=== PATIENT | male | born 1940 | race Caucasian/White ===

== ENCOUNTER 2019-04-22 17:29 | Emergency (ER) | payer MEDICARE ==
--- NOTE | 2019-04-22 17:37 | ED ---
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 En route, the patient was administered 50mg Benadryl and 0.3mg Epinephrine around 1710 which have helped to relieve his symptoms. He denies dysphagia at this time. He is not currently in pain. Pt states he feels tired and cold. no cp, sob, abd pain. No n/v/d. No itching. Reports vision completely at baseline. He states that he recently was stung by a paper wasp a few weeks ago, but today it looked like a yung bee. He takes baby ASA for afib every day. Patients medications reviewed this visit. - History of Current Complaint Hx Obtained From: Patient, EMS Onset/Duration: Sudden Onset, Started minutes ago, Still Present Timing: Lasting Minutes Severity Initially: Severe Severity Currently: Mild Pain Scale Used: 0-10 Numeric Location: Diffuse Character: Swelling - of tongue, Pruritus Aggravating Factor(s): Nothing Alleviating Factor(s): Antihistamines - Benadryl 50mg, Epinephrine - 0.3mg Associated Signs And Symptoms: Positive: Difficulty Breathing, Other: - POSITIVE : tongue swelling, blurred vision; NEGATIVE: dysphagia - Allergies/Home Medications Allergies/Adverse Reactions: Allergies Allergy/AdvReac Type Severity Reaction Status Date / Time bee venom protein (honey bee) Allergy Severe Swelling Verified 04/22/19 19:00 Of Face,Lips,& Throat MS Cephalexin [Cephalexin] Allergy Intermediate Hives Verified 05/23/16 15:29 MS Chondroitin Sulfate A Allergy Intermediate GI Upset Verified 05/23/16 15:29 [From Glucosamine Plus Chondroitin] MS Glucosamine Allergy Intermediate GI Upset Verified 05/23/16 15:29 [From Glucosamine Plus Chondroitin] MS Penicillins [PCN] Allergy Intermediate Hives Verified 05/23/16 15:29 MS Iodixanol [From Visipaque] Allergy Mild Hives Verified 02/13/17 11:30 Home Medications: Home Medications Dabigatran CAP(NF) [Pradaxa CAP(NF)] 150 mg PO BID 04/22/19 [History Confirmed 04/22/19] Metoprolol Succinate XL TAB* [Toprol XL TAB*] 25 mg PO DAILY 04/22/19 [History Confirmed 04/22/19] Miconazole Nitrate [Anti-Fungal Powder] 71 gm TOPICAL DAILY 04/22/19 [History Confirmed 04/22/19] traZODone TAB* [Desyrel TAB*] 75 mg PO BEDTIME 04/22/19 [History Confirmed 04/22] PMH/Surg Hx/FS Hx/Imm Hx Previously Healthy: Yes Endocrine/Hematology History: Reports: Hx Anticoagulant Therapy Denies: Hx Diabetes Cardiovascular History: Reports: Hx Angina, Hx Angioplasty, Hx Coronary Artery Disease, Hx Hypercholesterolemia, Hx Hypertension, Hx Myocardial Infarction Denies: Hx Congestive Heart Failure, Hx Valvular Heart Disease Respiratory History: Denies: Hx Asthma, Hx Chronic Obstructive Pulmonary Disease (COPD) GI History: Reports: Hx Hiatal Hernia, Other GI Disorders - HIATAL HERNIA, uses tums almost daily History: Reports: Hx Kidney Stones, Other Problems/Disorders - RENAL CALVULI WITH STENTS, uti Denies: Hx Renal Disease Musculoskeletal History: Reports: Hx Arthritis, Hx Back Problems, Hx Gout, Hx Orthopedic Injury - lumbar fx Sensory History: Reports: Hx Contacts or Glasses Opthamlomology History: Reports: Hx Contacts or Glasses - Surgical History Surgical History: Yes Surgery Procedure, Year, and Place: 2007 CARDIAC STENT, [facility]. 1999 KIDNEY STONE [facility]. KIDNEY STONE [facility], URETERAL STENT [facility] 01/14/14. bladder growth removed 2013 Hx Anesthesia Reactions: No - Immunization History Date of Tetanus Vaccine: Unk Date of Influenza Vaccine: Fall 2011 Infectious Disease History: Reports: Hx Shingles - 09/2014 - Family History Known Family History: Positive: Cardiac Disease, Non-Contributory - Social History Occupation: Retired Lives: With Family Alcohol Use: None Hx Substance Use: No Substance Use Type: Reports: None Hx Tobacco Use: Yes Smoking Status (MU): Former Smoker Have You Smoked in the Last Year: No Review of Systems Constitutional: Negative Positive: Blurred Vision - resolved Positive: Other - POSITIVE: tongue swelling (resolved); NEGATIVE: dysphagia Positive: Shortness Of Breath Positive: Other - bee sting with diffuse pruritus All Other Systems Reviewed And Are Negative: Yes Physical Exam - Summary Physical Exam Summary: Vital Signs Reviewed: Yes A+Ox3, no distress, speaking full, easy sentences Eyes: Conjunctiva Clear, AMBER. EOM intact and full ENT: Hearing grossly normal TM x 2 clear, mmoist, uvula midline, no exudate, no erythema Neck: Positive: Supple Respiratory: Positive: No respiratory distress, No accessory muscle use + CTA throughout no w/r, no stridor Cardiovascular: RRR nl s1, s2 no m/r CBT <2 sec abd soft + BS nt/nd no guarding, no distension Musculoskeletal Exam: DAVIS x 4 without difficulty Strength Intact, ROM Intact Neurological: Positive: Alert, + sensation throughout Psychological: Positive: Normal Response To flat surfacer Skin: Positive: no rash, no ecchymosis Triage Information Reviewed: Yes Vital Signs Reviewed: Yes Re-Evaluation - Re-Evaluation First Eval Re-Evaluation Time: 18:07 Comment: He is feeling well, but he is drowsy from the Benadryl. We'll give patient's of continue to monitor. Vital signs are stable. Second Eval Re-Evaluation Time: 18:50 - patient continues to feel well with no complaints. Patient will be discharged close to 8:00 after 3 hour observation from his appendectomy. Patient be signed out to Dr. Wick. Patient and family aware and understanding of plan. Allergic Reaction Course/Dx - Course Course Of Treatment: Pt presents to ED after rapid development of hives, sob and tongue swelling following a bee sting. Pt received Benadryl 50 mg and epinephrine by EMS at approximately 1710. Patient states he had rapid improvement. Some arrival urgent care patient states he feels tired little cold and shaky but no longer feels short of breath or like his tongue is swollen. Patient speaking easy. Uses. Patient in no distress with stable vital signs. We'll continue to closely watch monitor. We'll give patient Pepcid as well as Solu-Medrol. Anticipate a three-hour observation if there is no changes. Patient's family at bedside agreement with plan. We'll continue to watch. - Diagnoses Provider Diagnoses: Allergic reaction Discharge - Sign-Out/Discharge Documenting (check all that apply): Sign-Out Patient Signing out patient TO: Jameel Sloan - Patient is a sign-out to Dr. Jameel Sloan MD, at change of shift at 1900 on 04/22/2019, pending observation and disposition. Patient Received Moderate/Deep Sedation with Procedure: No - Discharge Plan Condition: Stable Disposition: HOME Prescriptions: EPINEPHrine [Epipen 2-Boy] 0.3 mg IJ ONCE #1 auto.injct Famotidine TAB* [Pepcid 20 MG TAB*] 20 mg PO DAILY #12 tab predniSONE TAB* [Deltasone 20 MG TAB*] 40 mg PO DAILY #8 tab Patient Education Materials: Insect Bite or Sting (ED), Anaphylaxis (ED) Referrals: Bk Alejandro MD [Primary Care Provider] - Additional Instructions: - Take prednisone exactly as prescribed until gone - starting tomorrow - Okay to take Benadryl (1-2 tablets) every 6 hours as needed. This medication may cause drowsiness - do NOT drive, operate machinery or drink alcohol while taking Benadryl -Take pepcid as prescribed - 2 times daily for 6 days starting tomorrow -Avoid getting over heated (hot showers, hot tubs, exercise) for at least 48 hours -Try to avoid aspirin, NSAIDs (Motrin, Aleve, Naprosyn) for 2-3 days -Okay to apply cool compresses to the area of injury - fill the prescription for the epi pen - keep with you and use if you have a similar reaction - if you use your epi pen you must contact 911 and come to the emergency department for evaluation -Contact your doctor or return here with questions or concerns - Billing Disposition and Condition Condition: STABLE Disposition: Home - Attestation Statements Document Initiated by Shonda: Yes Documenting Scribe: Sharee Stinson Provider For Whom Shonda is Documenting (Include Credential): Dr. Venessa Burdick MD Scribe Attestation: Sharee Longoria scribed for Dr. Venessa Burdick MD on 04/23/19 at 0717. Scribe Documentation Reviewed: Yes Provider Attestation: The documentation as recorded by the Sharee osborne accurately reflects the service I personally performed and the decisions made by me, Dr. Venessa Burdick MD Status of Scribafua Document: Viewed
[2019-04-22] MEDS ORDERED: Famotidine IV* 10 MG/ML 2 ML (20 mg) IV SLOW PU ONE (17:52)
[2019-04-22] MEDS ORDERED: methylPREDNISolone 125 MG* 2 ML VIAL IV ONE (17:52)
--- NOTE | 2019-04-22 19:12 | ED ---
Progress - Progress Note Progress Note: This pt is a signout from Dr. Burdick to Dr. Sloan at 0704/22/19 shift change pending allergic reaction observation. Pt was discharged. Re-Evaluation - Re-Evaluation First Eval Re-Evaluation Time: 18:07 Comment: He is feeling alright, but he is drowsy from the Benadryl. Course/Dx - Course Course Of Treatment: This pt is a signout from Dr. Burdick to Dr. Sloan [place] 69904/22/19 shift change pending allergic reaction observation. Pt was discharged. - Diagnoses Provider Diagnoses: Allergic reaction Discharge - Sign-Out/Discharge Documenting (check all that apply): Receiving Sign-Out Receiving patient FROM: Venessa Burdick - This pt is a signout from Dr. Burdick to Dr. Sloan [place] 69904/22/19 shift change pending allergic reaction observation. Patient Received Moderate/Deep Sedation with Procedure: No - Discharge Plan Condition: Stable Disposition: HOME Prescriptions: EPINEPHrine [Epipen 2-Boy] 0.3 mg IJ ONCE #1 auto.injct Famotidine TAB* [Pepcid 20 MG TAB*] 20 mg PO DAILY #12 tab predniSONE TAB* [Deltasone 20 MG TAB*] 40 mg PO DAILY #8 tab Patient Education Materials: Insect Bite or Sting (ED), Anaphylaxis (ED) Referrals: Bk Alejandro MD [Primary Care Provider] - Additional Instructions: - Take prednisone exactly as prescribed until gone - starting tomorrow - Okay to take Benadryl (1-2 tablets) every 6 hours as needed. This medication may cause drowsiness - do NOT drive, operate machinery or drink alcohol while taking Benadryl -Take pepcid as prescribed - 2 times daily for 6 days starting tomorrow -Avoid getting over heated (hot showers, hot tubs, exercise) for at least 48 hours -Try to avoid aspirin, NSAIDs (Motrin, Aleve, Naprosyn) for 2-3 days -Okay to apply cool compresses to the area of injury - fill the prescription for the epi pen - keep with you and use if you have a similar reaction - if you use your epi pen you must contact 911 and come to the emergency department for evaluation -Contact your doctor or return here with questions or concerns - Billing Disposition and Condition Condition: STABLE Disposition: Home - Attestation Statements Document Initiated by Shonda: Yes Documenting Scribe: Khoi Hickey Provider For Whom Shonda is Documenting (Include Credential): Dr. Jameel Sloan MD Scribe Attestation: I, Khoi Hickey, scribed for Dr. Jameel Sloan MD on 04/23/19 at 0416. Scribe Documentation Reviewed: Yes Provider Attestation: The documentation as recorded by the Khoi osborne accurately reflects the service I personally performed and the decisions made by me, Dr. Jameel Sloan MD Status of Scribe Document: Viewed
[2019-04-22 20:18] VITALS: BP 139/72
== END 2019-04-22 20:40 | disposition home or self-care (01) ==
LOC: ED 17:29
DX: T78.40XA Allergy, unspecified, initial encounter (principal); X58.XXXA Exposure to other specified factors, initial encounter; Y92.9 Unspecified place or not applicable; I48.91 Unspecified atrial fibrillation; I25.119 Atherosclerotic heart disease of native coronary artery with unspecified angina pectoris; Z79.82 Long term (current) use of aspirin; Z79.899 Other long term (current) drug therapy; Z88.0 Allergy status to penicillin; Z88.2 Allergy status to sulfonamides; Z88.8 Allergy status to other drugs, medicaments and biological substances; Z88.1 Allergy status to other antibiotic agents; Z91.041 Radiographic dye allergy status; E78.00 Pure hypercholesterolemia, unspecified; I10 Essential (primary) hypertension; I25.2 Old myocardial infarction; Z87.891 Personal history of nicotine dependence
CPT/HCPCS: 96374; 96375; 99282; J2930

== ENCOUNTER 2020-11-02 13:04 | Inpatient (IN) ==
[2020-11-02 14:06] LABS: ABS Lymphocytes 0.3 10^3/ul (1.0-4.8); ABS Monocytes 0.1 10^3/ul (0-0.8); ABS Neutrophils 1.4 10^3/ul (1.5-7.7); Hematocrit 35 % (42-52); Hemoglobin 11.5 g/dL (14.0-18.0); Lymphocyte % 18.5 %; Mean Corpuscular HGB Conc 33 g/dL (31-36); Mean Corpuscular Hemoglobin 29 pg (27-31); Mean Corpuscular Volume 89 fL (80-94); Mean Platelet Volume 8.1 fL (7.4-10.4); Platelet Count 121 10^3/uL (150-450); Red Blood Count 3.91 10^6 /uL (4.18-5.48); Red Cell Distribution Width 14 % (10-15); White Blood Count 1.9 10^3/uL (3.5-10.8)
[2020-11-02 14:16] LABS: Activated Partial Thrombo Time 45.4 seconds (26.0-38.0)
[2020-11-02 14:24] LABS: Influenza A Molecular Negative (Negative); Influenza B Molecular Negative (Negative)
[2020-11-02 14:25] LABS: ALT 24 U/L (7-52); AST 38 U/L (13-39); Albumin 3.8 g/dL (3.2-5.2); Albumin/Globulin Ratio 1.4 (1-3); Alkaline Phosphatase 40 U/L (34-104); Anion Gap 8 mmol/L (2-11); BUN/Creatinine Ratio 17.8 (8-20); Blood Urea Nitrogen 39 mg/dL (6-24); C Reactive Protein 91.13 mg/L (<8.01); CO2 Carbon Dioxide 24 mmol/L (22-32); Chloride 101 mmol/L (101-111); Creatine Kinase 357 U/L (10-223); EGFR African American 35.2 (>60); EGFR Non-African American 29.1 (>60); Globulin 2.8 g/dL (2-4); Glucose 121 mg/dL (70-100); Potassium 4.7 mmol/L (3.5-5.0); Sodium 133 mmol/L (135-145); Total Protein 6.6 g/dL (6.4-8.9)
[2020-11-02 14:28] LABS: Troponin I 0.08 ng/mL (<0.03)
[2020-11-02] MEDS ORDERED: NS 0.9% IV ONE (14:30)
[2020-11-02] MEDS ORDERED: Cefepime 2 GM in Dextrose 2 GM/50 ML BAG IV ONE (15:38)
[2020-11-02] MEDS ORDERED: Dexamethasone IV 4 MG/ML VIAL 1 ml VIAL IV SLOW PU ONE (15:42)
[2020-11-02] MEDS ORDERED: Remdesivir 100 mg Vial 200 MG in NS 0.9% 250 ml 210 ML IV ONE (18:00)
[2020-11-02 19:03] LABS: LDH 361 U/L (140-271)
[2020-11-02 22:05] LABS: Ferritin 744.3 ng/mL (24-336)
[2020-11-02 22:34] LABS: Troponin I 0.08 ng/mL (<0.03)
[2020-11-02] MEDS: Azithromycin 500 mg/250 ml NS 500 MG/250 ML BAG IVPB SCH (23:27)
[2020-11-02 23:56] LABS: Urine Appearance Cloudy; Urine Bilirubin Negative (Negative); Urine Blood Negative (Negative); Urine Color Yellow; Urine Glucose Negative (Negative); Urine Ketones Negative (Negative); Urine Nitrite Negative (Negative); Urine Protein 2+(100 mg/dL) (Negative); Urine Specific Gravity 1.019 (1.010-1.030); Urine Urobilinogen Negative (Negative)
[2020-11-03 00:05] LABS: Urine Creatinine Concentration 165.49 mg/dL
[2020-11-03 00:15] LABS: Urine Bacteria Absent (Absent); Urine Red Blood Cell Absent (Absent); Urine Squamous Epithelial Cell Present (Absent); Urine White Blood Cell Absent (Absent)
[2020-11-03 01:43] LABS: Troponin I 0.07 ng/mL (<0.03)
[2020-11-03 05:20] LABS: ABS Lymphocytes 0.3 10^3/ul (1.0-4.8); ABS Monocytes 0.1 10^3/ul (0-0.8); Eosinophil % 0.1 %; Hematocrit 33 % (42-52); Hemoglobin 10.7 g/dL (14.0-18.0); Lymphocyte % 24.2 %; Mean Corpuscular HGB Conc 33 g/dL (31-36); Mean Corpuscular Hemoglobin 29 pg (27-31); Mean Corpuscular Volume 89 fL (80-94); Mean Platelet Volume 8.2 fL (7.4-10.4); Nucleated Red Blood Cells % 0.2; Platelet Count 113 10^3/uL (150-450); Red Blood Count 3.67 10^6 /uL (4.18-5.48); Red Cell Distribution Width 14 % (10-15); White Blood Count 1.3 10^3/uL (3.5-10.8)
[2020-11-03 05:36] LABS: BUN/Creatinine Ratio 21.5 (8-20); Calcium 7.6 mg/dL (8.6-10.3); EGFR Non-African American 37.2 (>60)
[2020-11-03] MEDS ORDERED: cefTRIAXone 1 gm/50 mL NS BAG 1 GM/50 ML BAG IVPB SCH (08:00)
[2020-11-03] MEDS ORDERED: Tocilizumab 200 MG/10 ML 10 ml VIAL IVPB ONE (09:12)
[2020-11-03 09:19] LABS: C Reactive Protein 97.72 mg/L (<8.01)
[2020-11-03] MEDS: Aspirin EC 81 mg TAB.EC (enteric coated) PO SCH (09:57)
[2020-11-03] MEDS ORDERED: Tocilizumab 800 MG in NS 0.9% 100 ml BAG 60 ML IVPB ONE (11:00)
[2020-11-03] MEDS: Cefepime 2 GM in Dextrose 2 GM/50 ML BAG IV SCH ×2 (11:25→23:21)
[2020-11-03] MEDS: Azithromycin 500 mg/250 ml NS 500 MG/250 ML BAG IVPB SCH (20:37)
[2020-11-03] MEDS: Remdesivir 100 mg Vial 100 MG in NS 0.9% 250 ml 230 ML IV SCH (22:05)
[2020-11-04 07:02] LABS: ABS Lymphocytes 0.4 10^3/ul (1.0-4.8); ABS Monocytes 0.1 10^3/ul (0-0.8); ABS Neutrophils 1.9 10^3/ul (1.5-7.7); Hematocrit 32 % (42-52); Hemoglobin 10.9 g/dL (14.0-18.0); Lymphocyte % 14.8 %; Mean Corpuscular HGB Conc 34 g/dL (31-36); Mean Corpuscular Hemoglobin 30 pg (27-31); Mean Corpuscular Volume 88 fL (80-94); Mean Platelet Volume 8.3 fL (7.4-10.4); Nucleated Red Blood Cells % 0.1; Platelet Count 148 10^3/uL (150-450); Red Blood Count 3.68 10^6 /uL (4.18-5.48); Red Cell Distribution Width 15 % (10-15); White Blood Count 2.4 10^3/uL (3.5-10.8)
[2020-11-04 07:21] LABS: BUN/Creatinine Ratio 26.6 (8-20); Calcium 8.1 mg/dL (8.6-10.3); EGFR African American 57.6 (>60); EGFR Non-African American 47.6 (>60)
[2020-11-04 07:25] LABS: Potassium 5.1 mmol/L (3.5-5.0)
[2020-11-04] MEDS: Aspirin EC 81 mg TAB.EC (enteric coated) PO SCH (09:14)
[2020-11-04] MEDS: Cefepime 2 GM in Dextrose 2 GM/50 ML BAG IV SCH ×2 (09:15→22:28)
[2020-11-04] MEDS: Azithromycin 500 mg/250 ml NS 500 MG/250 ML BAG IVPB SCH (22:29)
[2020-11-04] MEDS: Remdesivir 100 mg Vial 100 MG in NS 0.9% 250 ml 230 ML IV SCH (22:35)
[2020-11-05 06:17] LABS: ABS Lymphocytes 0.3 10^3/ul (1.0-4.8); ABS Monocytes 0.2 10^3/ul (0-0.8); ABS Neutrophils 3.7 10^3/ul (1.5-7.7); Hematocrit 33 % (42-52); Lymphocyte % 6.3 %; Mean Corpuscular HGB Conc 33 g/dL (31-36); Mean Corpuscular Hemoglobin 30 pg (27-31); Mean Corpuscular Volume 89 fL (80-94); Mean Platelet Volume 8.2 fL (7.4-10.4); Nucleated Red Blood Cells % 0.1; Platelet Count 178 10^3/uL (150-450); Red Cell Distribution Width 15 % (10-15); White Blood Count 4.1 10^3/uL (3.5-10.8)
[2020-11-05 06:38] LABS: Calcium 8.2 mg/dL (8.6-10.3); EGFR African American 54.5 (>60); Potassium 4.9 mmol/L (3.5-5.0)
[2020-11-05 08:38] LABS: Ferritin 824.7 ng/mL (24-336)
[2020-11-05 09:35] LABS: Creatine Kinase 259 U/L (10-223)
[2020-11-05] MEDS: cefTRIAXone 1 gm/50 mL NS BAG 1 GM/50 ML BAG IVPB SCH (09:37)
[2020-11-05] MEDS: Aspirin EC 81 mg TAB.EC (enteric coated) PO SCH (09:57)
[2020-11-05] MEDS: Albuterol HFA INHALER 8 gm MDI INH SCH ×4 (12:23→23:17)
[2020-11-05] MEDS: Remdesivir 100 mg Vial 100 MG in NS 0.9% 250 ml 230 ML IV SCH (22:21)
[2020-11-06] MEDS: Albuterol HFA INHALER 8 gm MDI INH SCH ×4 (03:42→19:30)
[2020-11-06 03:47] LABS: ABS Lymphocytes 0.3 10^3/ul (1.0-4.8); ABS Monocytes 0.2 10^3/ul (0-0.8); ABS Neutrophils 5.3 10^3/ul (1.5-7.7); Hematocrit 33 % (42-52); Hemoglobin 10.9 g/dL (14.0-18.0); Lymphocyte % 5.1 %; Mean Corpuscular HGB Conc 33 g/dL (31-36); Mean Corpuscular Hemoglobin 29 pg (27-31); Mean Corpuscular Volume 89 fL (80-94); Mean Platelet Volume 8.5 fL (7.4-10.4); Nucleated Red Blood Cells % 0.1; Platelet Count 206 10^3/uL (150-450); Red Blood Count 3.71 10^6 /uL (4.18-5.48); Red Cell Distribution Width 15 % (10-15); White Blood Count 5.8 10^3/uL (3.5-10.8)
[2020-11-06 04:01] LABS: BUN/Creatinine Ratio 28.5 (8-20); Calcium 8.3 mg/dL (8.6-10.3); EGFR African American 60.5 (>60); Potassium 4.9 mmol/L (3.5-5.0)
[2020-11-06] MEDS: Aspirin EC 81 mg TAB.EC (enteric coated) PO SCH (08:30)
[2020-11-06 08:39] LABS: Magnesium 2.2 mg/dL (1.9-2.7)
[2020-11-06] MEDS: cefTRIAXone 1 gm/50 mL NS BAG 1 GM/50 ML BAG IVPB SCH (10:21)
[2020-11-06] MEDS: Remdesivir 100 mg Vial 100 MG in NS 0.9% 250 ml 230 ML IV SCH (23:06)
[2020-11-07 05:16] LABS: Hematocrit 34 % (42-52); Hemoglobin 11.4 g/dL (14.0-18.0); Mean Corpuscular HGB Conc 34 g/dL (31-36); Mean Corpuscular Hemoglobin 30 pg (27-31); Mean Corpuscular Volume 88 fL (80-94); Mean Platelet Volume 8.1 fL (7.4-10.4); Platelet Count 228 10^3/uL (150-450); Red Blood Count 3.84 10^6 /uL (4.18-5.48); Red Cell Distribution Width 15 % (10-15)
[2020-11-07 05:36] LABS: ABS Lymphocytes 0.3 10^3/ul (1.0-4.8); ABS Monocytes 0.2 10^3/ul (0-0.8); ABS Neutrophils 6.5 10^3/ul (1.5-7.7); Lymphocyte % 4.4 %; Nucleated Red Blood Cells % 0.1
[2020-11-07] MEDS: Aspirin EC 81 mg TAB.EC (enteric coated) PO SCH (11:24)
[2020-11-07] MEDS: cefTRIAXone 1 gm/50 mL NS BAG 1 GM/50 ML BAG IVPB SCH (11:44)
[2020-11-07 13:20] LABS: BUN/Creatinine Ratio 31.3 (8-20); C Reactive Protein 10.34 mg/L (<8.01); Calcium 8.5 mg/dL (8.6-10.3); EGFR African American 65.4 (>60); EGFR Non-African American 54.1 (>60); Magnesium 2.1 mg/dL (1.9-2.7); Phosphorus 2.9 mg/dL (2.5-5.0); Potassium 4.7 mmol/L (3.5-5.0)
[2020-11-08 05:49] LABS: ABS Lymphocytes 0.3 10^3/ul (1.0-4.8); ABS Monocytes 0.2 10^3/ul (0-0.8); ABS Neutrophils 8.3 10^3/ul (1.5-7.7); Eosinophil % 0.1 %; Hematocrit 36 % (42-52); Hemoglobin 12.4 g/dL (14.0-18.0); Lymphocyte % 3.8 %; Mean Corpuscular HGB Conc 34 g/dL (31-36); Mean Corpuscular Hemoglobin 30 pg (27-31); Mean Corpuscular Volume 87 fL (80-94); Mean Platelet Volume 7.7 fL (7.4-10.4); Platelet Count 265 10^3/uL (150-450); Red Blood Count 4.16 10^6 /uL (4.18-5.48); Red Cell Distribution Width 15 % (10-15); White Blood Count 8.8 10^3/uL (3.5-10.8)
[2020-11-08 06:05] LABS: BUN/Creatinine Ratio 30.1 (8-20); Calcium 8.4 mg/dL (8.6-10.3); EGFR African American 62.6 (>60); EGFR Non-African American 51.7 (>60); Phosphorus 3.6 mg/dL (2.5-5.0); Potassium 4.6 mmol/L (3.5-5.0)
[2020-11-08] MEDS: Aspirin EC 81 mg TAB.EC (enteric coated) PO SCH (09:11)
[2020-11-08] MEDS: cefTRIAXone 1 gm/50 mL NS BAG 1 GM/50 ML BAG IVPB SCH (10:07)
[2020-11-08] MEDS ORDERED: Furosemide 40 mg/4 ml IV VIAL IV SLOW PU ONE (10:56)
[2020-11-08 14:41] LABS: Troponin I 0.41 ng/mL (<0.03)
[2020-11-08 20:40] LABS: Troponin I 0.34 ng/mL (<0.03)
[2020-11-09 02:44] LABS: Troponin I 0.34 ng/mL (<0.03)
[2020-11-09 05:06] LABS: ABS Lymphocytes 0.4 10^3/ul (1.0-4.8); ABS Monocytes 0.2 10^3/ul (0-0.8); ABS Neutrophils 6.7 10^3/ul (1.5-7.7); Eosinophil % 0.7 %; Hematocrit 36 % (42-52); Hemoglobin 12.1 g/dL (14.0-18.0); Lymphocyte % 5.7 %; Mean Corpuscular HGB Conc 34 g/dL (31-36); Mean Corpuscular Hemoglobin 29 pg (27-31); Mean Corpuscular Volume 88 fL (80-94); Mean Platelet Volume 7.8 fL (7.4-10.4); Nucleated Red Blood Cells % 0.1; Platelet Count 252 10^3/uL (150-450); Red Blood Count 4.13 10^6 /uL (4.18-5.48); Red Cell Distribution Width 15 % (10-15); White Blood Count 7.4 10^3/uL (3.5-10.8)
[2020-11-09 05:17] LABS: BUN/Creatinine Ratio 30.2 (8-20); Calcium 8.6 mg/dL (8.6-10.3); EGFR African American 50.9 (>60); EGFR Non-African American 42.1 (>60); Magnesium 2.1 mg/dL (1.9-2.7); Potassium 4.4 mmol/L (3.5-5.0)
[2020-11-09] MEDS: Aspirin EC 81 mg TAB.EC (enteric coated) PO SCH (07:39)
[2020-11-09] MEDS ORDERED: Lorazepam PYXIS KEY PRN (08:00)
[2020-11-09] MEDS ORDERED: LORazepam 2 mg VIAL 1 ml IV PUSH PRN (08:00)
[2020-11-09] MEDS: cefTRIAXone 1 gm/50 mL NS BAG 1 GM/50 ML BAG IVPB SCH (10:30)
[2020-11-10 05:42] LABS: ABS Eosinophils 0.1 10^3/ul (0-0.6); ABS Lymphocytes 0.4 10^3/ul (1.0-4.8); ABS Monocytes 0.2 10^3/ul (0-0.8); ABS Neutrophils 6.2 10^3/ul (1.5-7.7); Eosinophil % 1.5 %; Hematocrit 37 % (42-52); Hemoglobin 12.3 g/dL (14.0-18.0); Lymphocyte % 5.6 %; Mean Corpuscular HGB Conc 33 g/dL (31-36); Mean Corpuscular Hemoglobin 30 pg (27-31); Mean Corpuscular Volume 89 fL (80-94); Nucleated Red Blood Cells % 0.1; Platelet Count 228 10^3/uL (150-450); Red Blood Count 4.17 10^6 /uL (4.18-5.48); Red Cell Distribution Width 15 % (10-15); White Blood Count 6.9 10^3/uL (3.5-10.8)
[2020-11-10 05:54] LABS: BUN/Creatinine Ratio 34.2 (8-20); Calcium 8.5 mg/dL (8.6-10.3); EGFR African American 53.7 (>60); EGFR Non-African American 44.3 (>60); Magnesium 2.2 mg/dL (1.9-2.7); Potassium 4.3 mmol/L (3.5-5.0)
[2020-11-10] MEDS: Aspirin EC 81 mg TAB.EC (enteric coated) PO SCH (08:01)
[2020-11-10] MEDS: cefTRIAXone 1 gm/50 mL NS BAG 1 GM/50 ML BAG IVPB SCH (09:59)
[2020-11-10 12:13] LABS: Troponin I 1.17 ng/mL (<0.03)
[2020-11-10] MEDS ORDERED: Nitroglycerin 0.1 mg/hr PATCH (2.5 mg) TRANSDERM SCH (13:00)
[2020-11-10] MEDS ORDERED: Nitroglycerin 0.1 mg/hr PATCH (2.5 mg) TRANSDERM PRN (13:48)
[2020-11-10 18:14] LABS: Troponin I 1.76 ng/mL (<0.03)
[2020-11-10] MEDS: Nitro Patch/OINT Remove PATCH PATCH OFF SCH (20:58)
[2020-11-11 03:38] LABS: ABS Eosinophils 0.1 10^3/ul (0-0.6); ABS Lymphocytes 0.4 10^3/ul (1.0-4.8); ABS Monocytes 0.2 10^3/ul (0-0.8); ABS Neutrophils 6.7 10^3/ul (1.5-7.7); Eosinophil % 1.9 %; Hematocrit 38 % (42-52); Lymphocyte % 5.2 %; Mean Corpuscular HGB Conc 34 g/dL (31-36); Mean Corpuscular Hemoglobin 30 pg (27-31); Mean Corpuscular Volume 88 fL (80-94); Mean Platelet Volume 7.5 fL (7.4-10.4); Platelet Count 240 10^3/uL (150-450); Red Blood Count 4.37 10^6 /uL (4.18-5.48); Red Cell Distribution Width 15 % (10-15); White Blood Count 7.5 10^3/uL (3.5-10.8)
[2020-11-11 03:58] LABS: BUN/Creatinine Ratio 31.5 (8-20); Calcium 8.5 mg/dL (8.6-10.3); EGFR African American 56.2 (>60); EGFR Non-African American 46.5 (>60); Magnesium 2.1 mg/dL (1.9-2.7); Potassium 4.4 mmol/L (3.5-5.0)
[2020-11-11] MEDS: Aspirin EC 81 mg TAB.EC (enteric coated) PO SCH (09:01)
[2020-11-11] MEDS: Nitro Patch/OINT Remove PATCH PATCH OFF SCH (20:23)
[2020-11-12] MEDS ORDERED: Dextran 70/Hypromellose Tears Eye Drops 15 ml BTL (for Artificials Tears) BOTH EYES PRN (03:48)
[2020-11-12] MEDS: Aspirin EC 81 mg TAB.EC (enteric coated) PO SCH (09:16)
[2020-11-12] MEDS: Saline NASAL SPRAY 0.65% BTL BOTH NARES PRN (11:42)
[2020-11-12] MEDS: Nitro Patch/OINT Remove PATCH PATCH OFF SCH (22:00)
[2020-11-13 01:15] LABS: Troponin I 0.77 ng/mL (<0.03)
[2020-11-13] MEDS ORDERED: Morphine 2 MG/ML SYRINGE IV ONE (01:36)
[2020-11-13] MEDS: Aspirin EC 81 mg TAB.EC (enteric coated) PO SCH (09:08)
[2020-11-13] MEDS: Albuterol HFA INHALER 8 gm MDI INH PRN (15:12)
[2020-11-13] MEDS: Acetylcysteine INH SOL (RT) 200 MG/ML 4 ML VIAL INH SCH ×2 (15:12→19:39)
[2020-11-13 17:18] LABS: Anion Gap 9 mmol/L (2-11); BUN/Creatinine Ratio 28.2 (8-20); Blood Urea Nitrogen 44 mg/dL (6-24); CO2 Carbon Dioxide 22 mmol/L (22-32); Calcium 8.7 mg/dL (8.6-10.3); Chloride 110 mmol/L (101-111); EGFR African American 52.1 (>60); Glucose 121 mg/dL (70-100); Potassium 4.4 mmol/L (3.5-5.0); Sodium 141 mmol/L (135-145)
[2020-11-13] MEDS: Nitro Patch/OINT Remove PATCH PATCH OFF SCH (21:40)
[2020-11-14] MEDS: Acetylcysteine INH SOL (RT) 200 MG/ML 4 ML VIAL INH SCH ×4 (01:02→20:06)
[2020-11-14] MEDS: Albuterol HFA INHALER 8 gm MDI INH PRN (07:53)
[2020-11-14] MEDS: Aspirin EC 81 mg TAB.EC (enteric coated) PO SCH (09:09)
[2020-11-14] MEDS: Miconazole TOPICAL CREAM 2% 30 GM TOPICAL SCH ×2 (09:55→20:23)
[2020-11-14] MEDS ORDERED: Albuterol 2.5mg/3 ml (0.083%) NEB.SOLN INH ONE (19:50)
[2020-11-14] MEDS: Nitro Patch/OINT Remove PATCH PATCH OFF SCH (20:23)
[2020-11-15] MEDS: Acetylcysteine INH SOL (RT) 200 MG/ML 4 ML VIAL INH SCH (01:12)
[2020-11-15] MEDS: Albuterol 2.5mg/3 ml (0.083%) NEB.SOLN INH SCH ×2 (01:12→07:24)
[2020-11-15] MEDS ORDERED: Acetylcysteine INH SOL (RT) 200 MG/ML 4 ML VIAL INH SCH (07:00)
[2020-11-15] MEDS: Aspirin EC 81 mg TAB.EC (enteric coated) PO SCH (08:03)
[2020-11-15] MEDS: Miconazole TOPICAL CREAM 2% 30 GM TOPICAL SCH ×2 (08:05→21:31)
[2020-11-15] MEDS ORDERED: Albuterol/Ipratropium NEB.SOL (2.5/0.5 MG) 3 ML NEB.SOLN INH PRN (12:38)
[2020-11-15] MEDS: Nitro Patch/OINT Remove PATCH PATCH OFF SCH (21:43)
[2020-11-16 06:17] LABS: BUN/Creatinine Ratio 22.8 (8-20); Calcium 8.5 mg/dL (8.6-10.3); EGFR African American 51.3 (>60); EGFR Non-African American 42.4 (>60); Potassium 4.2 mmol/L (3.5-5.0)
[2020-11-16] MEDS: Aspirin EC 81 mg TAB.EC (enteric coated) PO SCH (08:33)
[2020-11-16] MEDS: Miconazole TOPICAL CREAM 2% 30 GM TOPICAL SCH ×2 (08:35→20:35)
[2020-11-16] MEDS: Saline NASAL SPRAY 0.65% BTL BOTH NARES PRN ×2 (08:35→13:28)
[2020-11-16] MEDS: Nitro Patch/OINT Remove PATCH PATCH OFF SCH (20:35)
[2020-11-17] MEDS: Aspirin EC 81 mg TAB.EC (enteric coated) PO SCH (08:32)
[2020-11-17] MEDS: Miconazole TOPICAL CREAM 2% 30 GM TOPICAL SCH ×2 (08:35→20:36)
[2020-11-17 14:29] LABS: ABS Eosinophils 0.1 10^3/ul (0-0.6); ABS Lymphocytes 0.8 10^3/ul (1.0-4.8); ABS Monocytes 0.5 10^3/ul (0-0.8); ABS Neutrophils 3.8 10^3/ul (1.5-7.7); Eosinophil % 1.5 %; Hematocrit 37 % (42-52); Hemoglobin 12.3 g/dL (14.0-18.0); Lymphocyte % 15.9 %; Mean Corpuscular HGB Conc 34 g/dL (31-36); Mean Corpuscular Hemoglobin 30 pg (27-31); Mean Corpuscular Volume 89 fL (80-94); Mean Platelet Volume 7.9 fL (7.4-10.4); Platelet Count 155 10^3/uL (150-450); Red Blood Count 4.11 10^6 /uL (4.18-5.48); Red Cell Distribution Width 15 % (10-15); White Blood Count 5.3 10^3/uL (3.5-10.8)
[2020-11-17 14:50] LABS: BUN/Creatinine Ratio 25.5 (8-20); Calcium 8.8 mg/dL (8.6-10.3); EGFR African American 50.2 (>60); EGFR Non-African American 41.5 (>60); Potassium 4.2 mmol/L (3.5-5.0)
[2020-11-18 07:03] LABS: ABS Basophils 0.1 10^3/ul (0-0.2); ABS Eosinophils 0.1 10^3/ul (0-0.6); ABS Monocytes 0.5 10^3/ul (0-0.8); ABS Neutrophils 2.6 10^3/ul (1.5-7.7); Eosinophil % 1.8 %; Hematocrit 36 % (42-52); Hemoglobin 11.8 g/dL (14.0-18.0); Lymphocyte % 23.8 %; Mean Corpuscular HGB Conc 33 g/dL (31-36); Mean Corpuscular Hemoglobin 30 pg (27-31); Mean Corpuscular Volume 90 fL (80-94); Mean Platelet Volume 7.9 fL (7.4-10.4); Platelet Count 153 10^3/uL (150-450); Red Blood Count 4.02 10^6 /uL (4.18-5.48); Red Cell Distribution Width 15 % (10-15); White Blood Count 4.3 10^3/uL (3.5-10.8)
[2020-11-18 07:19] LABS: BUN/Creatinine Ratio 24.7 (8-20); Calcium 8.8 mg/dL (8.6-10.3); EGFR African American 54.5 (>60); Potassium 4.1 mmol/L (3.5-5.0)
[2020-11-18] MEDS: Aspirin EC 81 mg TAB.EC (enteric coated) PO SCH (08:50)
[2020-11-18] MEDS: Miconazole TOPICAL CREAM 2% 30 GM TOPICAL SCH ×2 (08:52→22:01)
[2020-11-19] MEDS: Aspirin EC 81 mg TAB.EC (enteric coated) PO SCH (09:25)
[2020-11-19] MEDS: Miconazole TOPICAL CREAM 2% 30 GM TOPICAL SCH ×2 (09:27→21:58)
[2020-11-19 12:46] LABS: Uric Acid 8.9 mg/dL (4.4-7.6)
[2020-11-20 08:46] LABS: ABS Lymphocytes 0.9 10^3/ul (1.0-4.8); ABS Monocytes 0.6 10^3/ul (0-0.8); ABS Neutrophils 5.3 10^3/ul (1.5-7.7); Eosinophil % 0.2 %; Hematocrit 35 % (42-52); Hemoglobin 11.8 g/dL (14.0-18.0); Lymphocyte % 13.4 %; Mean Corpuscular HGB Conc 34 g/dL (31-36); Mean Corpuscular Hemoglobin 30 pg (27-31); Mean Corpuscular Volume 90 fL (80-94); Mean Platelet Volume 8.1 fL (7.4-10.4); Platelet Count 151 10^3/uL (150-450); Red Blood Count 3.92 10^6 /uL (4.18-5.48); Red Cell Distribution Width 15 % (10-15); White Blood Count 6.8 10^3/uL (3.5-10.8)
[2020-11-20 09:02] LABS: BUN/Creatinine Ratio 21.8 (8-20); Calcium 8.8 mg/dL (8.6-10.3); EGFR African American 62.6 (>60); EGFR Non-African American 51.7 (>60); Potassium 4.5 mmol/L (3.5-5.0)
[2020-11-20] MEDS: Aspirin EC 81 mg TAB.EC (enteric coated) PO SCH (09:43)
[2020-11-20] MEDS: Miconazole TOPICAL CREAM 2% 30 GM TOPICAL SCH ×2 (09:46→22:02)
[2020-11-21] MEDS: Aspirin EC 81 mg TAB.EC (enteric coated) PO SCH (08:35)
[2020-11-21] MEDS: Miconazole TOPICAL CREAM 2% 30 GM TOPICAL SCH ×2 (08:35→21:13)
[2020-11-22] MEDS: Aspirin EC 81 mg TAB.EC (enteric coated) PO SCH (10:19)
[2020-11-22] MEDS: Miconazole TOPICAL CREAM 2% 30 GM TOPICAL SCH ×2 (14:53→20:40)
[2020-11-23] MEDS: Aspirin EC 81 mg TAB.EC (enteric coated) PO SCH (09:35)
[2020-11-23] MEDS: Miconazole TOPICAL CREAM 2% 30 GM TOPICAL SCH (10:47)
[2020-11-23 11:56] VITALS: BP 100/60
== END 2020-11-23 13:09 | disposition home or self-care (01) | DRG 871 ==
LOC: ED 13:04 → MED 17:05 → ICU 11-05 02:53 → MED 11-06 17:21 → ICU 11-07 22:48 → MEDTELE 11-15 11:01
PROVIDERS: ADMIT Internal Medicine; ATTEND Internal Medicine

== ENCOUNTER 2021-11-21 10:48 | Inpatient (IN) ==
[2021-11-21 12:04] LABS: ABS Eosinophils 0.1 10^3/ul (0-0.6); ABS Monocytes 0.5 10^3/ul (0-0.8); ABS Neutrophils 4.4 10^3/ul (1.5-7.7); Eosinophil % 1.7 %; Hematocrit 27 % (42-52); Lymphocyte % 16.5 %; Mean Corpuscular HGB Conc 33 g/dL (31-36); Mean Corpuscular Hemoglobin 32 pg (27-31); Mean Corpuscular Volume 94 fL (80-94); Mean Platelet Volume 8.4 fL (7.4-10.4); Platelet Count 135 10^3/uL (150-450); Red Blood Count 2.84 10^6 /uL (4.18-5.48); Red Cell Distribution Width 15 % (10-15)
[2021-11-21 12:09] LABS: Activated Partial Thrombo Time 94.4 seconds (26.0-38.0); INR 2.45 (0.86-1.15)
[2021-11-21 12:49] LABS: Albumin 3.9 g/dL (3.2-5.2); Calcium 8.7 mg/dL (8.6-10.3); Potassium 4.3 mmol/L (3.5-5.0); Total Bilirubin 1.7 mg/dL (0.2-1.0)
[2021-11-21 12:55] LABS: eGFR CKD-EPI 48.8 (>60)
[2021-11-21 13:11] LABS: Albumin/Globulin Ratio 1.7 (1-3); Globulin 2.3 g/dL (2-4); Total Protein 6.2 g/dL (6.4-8.9)
[2021-11-21 13:17] LABS: High Sensitivity Troponin 1 Hr 21 pg/mL (<20)
[2021-11-21] MEDS ORDERED: Iodixanol (CONTRAST) 320 MG/ML 100 ML SDV IV ONE (13:24)
[2021-11-21] MEDS ORDERED: Levofloxacin 750 MG IVPREMIX 750 MG/150 ML BAG IVPB ONE (14:42)
[2021-11-21] MEDS ORDERED: Vancomycin 1,500 MG in NS 0.9% 250 ml 250 ML IVPB SCH (17:51)
[2021-11-21] MEDS ORDERED: Vancomycin per Pharmacy 1 EA NOTE FOLLOW UP PRN (18:09)
[2021-11-21] MEDS ORDERED: Vancomycin 2,000 MG in NS 0.9% 500 ml BAG 500 ML IVPB ONE (18:15)
[2021-11-21 19:45] LABS: Hematocrit 28 % (42-52); Hemoglobin 9.4 g/dL (14.0-18.0)
[2021-11-21 19:55] LABS: Corrected Retic Count 2.1 % (0.5-1.5); Hematocrit for Retic CNT 27 % (42-52); Immature Retic Fraction 0.59; RBC Retic Count 2.84 10^6/uL (4.18-5.48)
[2021-11-21 20:08] LABS: Direct Bilirubin 0.4 mg/dL (0.03-0.18); Indirect Bilirubin 1.3 mg/dL (0.3-1.0)
[2021-11-21 20:14] LABS: C Reactive Protein 22.2 mg/L (<8.01)
[2021-11-21 20:22] LABS: Ferritin 118.9 ng/mL (24-336)
[2021-11-21] MEDS ORDERED: CMCS: Dabigatran 150 mg CAP (NF) PO SCH (21:00)
[2021-11-21] MEDS ORDERED: Ondansetron 4 mg VIAL 2 MG/ML 2 ml VIAL IV ONE (21:36)
[2021-11-21] MEDS: Lactated Ringers 500 ml BAG 500 ML IV SCH (22:02)
[2021-11-21 22:36] LABS: ABS Eosinophils 0.1 10^3/ul (0-0.6); ABS Lymphocytes 0.7 10^3/ul (1.0-4.8); ABS Monocytes 0.5 10^3/ul (0-0.8); ABS Neutrophils 7.4 10^3/ul (1.5-7.7); Eosinophil % 0.9 %; Hematocrit 30 % (42-52); Hemoglobin 10.4 g/dL (14.0-18.0); Lymphocyte % 7.7 %; Mean Corpuscular HGB Conc 34 g/dL (31-36); Mean Corpuscular Hemoglobin 32 pg (27-31); Mean Corpuscular Volume 95 fL (80-94); Mean Platelet Volume 9.1 fL (7.4-10.4); Platelet Count 153 10^3/uL (150-450); Red Blood Count 3.22 10^6 /uL (4.18-5.48); Red Cell Distribution Width 16 % (10-15); White Blood Count 8.7 10^3/uL (3.5-10.8)
[2021-11-22] MEDS: Lactated Ringers 500 ml BAG 500 ML IV SCH (04:21)
[2021-11-22 06:11] LABS: ABS Lymphocytes 0.7 10^3/ul (1.0-4.8); ABS Monocytes 0.4 10^3/ul (0-0.8); ABS Neutrophils 4.5 10^3/ul (1.5-7.7); Eosinophil % 0.6 %; Hematocrit 25 % (42-52); Hemoglobin 8.3 g/dL (14.0-18.0); Lymphocyte % 12.3 %; Mean Corpuscular HGB Conc 33 g/dL (31-36); Mean Corpuscular Hemoglobin 31 pg (27-31); Mean Corpuscular Volume 94 fL (80-94); Mean Platelet Volume 9.1 fL (7.4-10.4); Platelet Count 135 10^3/uL (150-450); Red Blood Count 2.66 10^6 /uL (4.18-5.48); Red Cell Distribution Width 16 % (10-15); White Blood Count 5.6 10^3/uL (3.5-10.8)
[2021-11-22 07:04] LABS: Calcium 8.2 mg/dL (8.6-10.3)
[2021-11-22] MEDS: Aspirin EC 81 mg TAB.EC (enteric coated) PO SCH (08:31)
[2021-11-22] MEDS: cefTRIAXone 1 gm/50 mL NS BAG 1 GM/50 ML BAG IVPB SCH (08:32)
[2021-11-22] MEDS: Pantoprazole VIAL 40 MG VIAL IV SCH ×2 (09:39→21:44)
[2021-11-22] MEDS: DOXYcycline 100 MG in NS 0.9% 250 ml 250 ML IVPB SCH ×2 (09:50→22:10)
[2021-11-22 11:53] LABS: Activated Partial Thrombo Time 68.5 seconds (26.0-38.0); Fibrinogen 137.4 mg/dL (110.8-404.3); INR 1.99 (0.86-1.15)
[2021-11-22 15:00] LABS: Urine Appearance Cloudy; Urine Bilirubin Negative (Negative); Urine Blood Negative (Negative); Urine Color Yellow; Urine Glucose Negative (Negative); Urine Ketones Negative (Negative); Urine Nitrite Negative (Negative); Urine Protein Negative (Negative); Urine Specific Gravity 1.027 (1.002-1.030); Urine Urobilinogen Negative (Negative)
[2021-11-22] MEDS ORDERED: Vancomycin 1,500 MG in NS 0.9% 250 ml 250 ML IVPB SCH (15:00)
[2021-11-23 06:02] LABS: ABS Eosinophils 0.2 10^3/ul (0-0.6); ABS Lymphocytes 0.9 10^3/ul (1.0-4.8); ABS Monocytes 0.4 10^3/ul (0-0.8); ABS Neutrophils 3.4 10^3/ul (1.5-7.7); Eosinophil % 3.3 %; Hematocrit 24 % (42-52); Lymphocyte % 19.2 %; Mean Corpuscular HGB Conc 34 g/dL (31-36); Mean Corpuscular Hemoglobin 32 pg (27-31); Mean Corpuscular Volume 94 fL (80-94); Mean Platelet Volume 8.3 fL (7.4-10.4); Platelet Count 130 10^3/uL (150-450); Red Blood Count 2.54 10^6 /uL (4.18-5.48); Red Cell Distribution Width 16 % (10-15); White Blood Count 4.9 10^3/uL (3.5-10.8)
[2021-11-23 07:02] LABS: Calcium 8.4 mg/dL (8.6-10.3); Direct Bilirubin 0.2 mg/dL (0.03-0.18); Indirect Bilirubin 0.7 mg/dL (0.3-1.0); Potassium 4.7 mmol/L (3.5-5.0); Total Bilirubin 0.9 mg/dL (0.2-1.0); Total Protein 5.2 g/dL (6.4-8.9); eGFR CKD-EPI 38.1 (>60)
[2021-11-23 07:22] LABS: Albumin 3.5 g/dL (3.2-5.2); Albumin/Globulin Ratio 2.1 (1-3); Globulin 1.7 g/dL (2-4)
[2021-11-23] MEDS: Aspirin EC 81 mg TAB.EC (enteric coated) PO SCH (11:24)
[2021-11-23] MEDS: cefTRIAXone 1 gm/50 mL NS BAG 1 GM/50 ML BAG IVPB SCH (11:25)
[2021-11-23] MEDS: Pantoprazole VIAL 40 MG VIAL IV SCH ×2 (11:26→21:37)
[2021-11-23] MEDS: DOXYcycline 100 MG in NS 0.9% 250 ml 250 ML IVPB SCH ×2 (11:26→21:35)
[2021-11-24 05:34] LABS: ABS Eosinophils 0.2 10^3/ul (0-0.6); ABS Lymphocytes 0.8 10^3/ul (1.0-4.8); ABS Monocytes 0.4 10^3/ul (0-0.8); ABS Neutrophils 4.3 10^3/ul (1.5-7.7); Eosinophil % 3.4 %; Hematocrit 23 % (42-52); Hemoglobin 7.8 g/dL (14.0-18.0); Lymphocyte % 14.4 %; Mean Corpuscular HGB Conc 34 g/dL (31-36); Mean Corpuscular Hemoglobin 31 pg (27-31); Mean Corpuscular Volume 93 fL (80-94); Mean Platelet Volume 8.7 fL (7.4-10.4); Nucleated Red Blood Cells % 0.1; Platelet Count 129 10^3/uL (150-450); Red Cell Distribution Width 15 % (10-15); White Blood Count 5.7 10^3/uL (3.5-10.8)
[2021-11-24] MEDS ORDERED: Buffered Lidocaine 1% SYRIN 1 ml INTRADERM ONE (06:00)
[2021-11-24 06:36] LABS: Calcium 8.1 mg/dL (8.6-10.3); Potassium 4.5 mmol/L (3.5-5.0)
[2021-11-24 06:43] LABS: eGFR CKD-EPI 40.6 (>60)
[2021-11-24] MEDS: cefTRIAXone 1 gm/50 mL NS BAG 1 GM/50 ML BAG IVPB SCH (08:46)
[2021-11-24] MEDS: Pantoprazole VIAL 40 MG VIAL IV SCH ×2 (08:46→20:47)
[2021-11-24] MEDS: Aspirin EC 81 mg TAB.EC (enteric coated) PO SCH (08:46)
[2021-11-24] MEDS: DOXYcycline 100 MG in NS 0.9% 250 ml 250 ML IVPB SCH ×2 (08:53→20:48)
[2021-11-24 12:52] LABS: Procalcitonin, S 0.23 ng/mL (<=0.15)
[2021-11-24] MEDS ORDERED: Lidocaine 2% JELLY 20 ML (for OR use) ONE (13:48)
[2021-11-24] MEDS ORDERED: Lidocaine 1% MPF 5 ML VIAL ONE (13:48)
[2021-11-24] MEDS ORDERED: Lidocaine 2% PF 10 ML AMP ONE (13:48)
[2021-11-24] MEDS ORDERED: Vancomycin Trough Check NOTE FOLLOW UP ONE (14:30)
[2021-11-24 15:20] LABS: Body Fluid Source Broncheoalveolar lav
[2021-11-24 15:55] LABS: Body Fluid Source Broncheoalveolar lav
[2021-11-24 16:33] LABS: Activated Partial Thrombo Time 40.6 seconds (26.0-38.0); Fibrinogen 347.6 mg/dL (110.8-404.3); INR 1.44 (0.86-1.15)
[2021-11-24 19:05] LABS: Body Fluid Appearance Bloody; Body Fluid Color Red
[2021-11-24] MEDS: Lactated Ringers 1000 ml BAG 1,000 ML IV SCH (21:14)
[2021-11-24 22:27] LABS: Body Fluid Other Cells 152; Body Fluid Total Cells Counted 218
[2021-11-24 22:41] LABS: Body Fluid Other Cells 244; Body Fluid Total Cells Counted 300
[2021-11-25] MEDS: Lactated Ringers 1000 ml BAG 1,000 ML IV SCH (05:58)
[2021-11-25 06:05] LABS: ABS Lymphocytes 0.4 10^3/ul (1.0-4.8); ABS Monocytes 0.2 10^3/ul (0-0.8); ABS Neutrophils 4.1 10^3/ul (1.5-7.7); Eosinophil % 0.1 %; Hematocrit 24 % (42-52); Hemoglobin 7.9 g/dL (14.0-18.0); Lymphocyte % 8.3 %; Mean Corpuscular HGB Conc 33 g/dL (31-36); Mean Corpuscular Hemoglobin 32 pg (27-31); Mean Corpuscular Volume 95 fL (80-94); Mean Platelet Volume 9.6 fL (7.4-10.4); Platelet Count 121 10^3/uL (150-450); Red Blood Count 2.49 10^6 /uL (4.18-5.48); Red Cell Distribution Width 15 % (10-15); White Blood Count 4.6 10^3/uL (3.5-10.8)
[2021-11-25 06:07] LABS: Calcium 8.2 mg/dL (8.6-10.3); Potassium 4.7 mmol/L (3.5-5.0); eGFR CKD-EPI 46.9 (>60)
[2021-11-25 06:21] LABS: TSH Ultra Thyroid Stim Horm 1.53 mcIU/mL (0.34-5.60)
[2021-11-25] MEDS: Aspirin EC 81 mg TAB.EC (enteric coated) PO SCH (08:18)
[2021-11-25] MEDS: Pantoprazole VIAL 40 MG VIAL IV SCH ×2 (08:23→20:53)
[2021-11-25] MEDS: cefTRIAXone 1 gm/50 mL NS BAG 1 GM/50 ML BAG IVPB SCH (08:24)
[2021-11-25] MEDS: DOXYcycline 100 MG in NS 0.9% 250 ml 250 ML IVPB SCH ×2 (08:56→20:54)
[2021-11-26 07:10] LABS: ABS Monocytes 0.4 10^3/ul (0-0.8); ABS Neutrophils 4.4 10^3/ul (1.5-7.7); Eosinophil % 0.4 %; Hematocrit 24 % (42-52); Hemoglobin 8.1 g/dL (14.0-18.0); Lymphocyte % 17.4 %; Mean Corpuscular HGB Conc 34 g/dL (31-36); Mean Corpuscular Hemoglobin 32 pg (27-31); Mean Corpuscular Volume 94 fL (80-94); Mean Platelet Volume 9.2 fL (7.4-10.4); Nucleated Red Blood Cells % 0.1; Platelet Count 139 10^3/uL (150-450); Red Blood Count 2.52 10^6 /uL (4.18-5.48); Red Cell Distribution Width 16 % (10-15); White Blood Count 5.9 10^3/uL (3.5-10.8)
[2021-11-26 07:31] LABS: Calcium 8.3 mg/dL (8.6-10.3); Potassium 4.4 mmol/L (3.5-5.0); eGFR CKD-EPI 47.6 (>60)
[2021-11-26] MEDS ORDERED: Polyethylene Glycol 3350 17 GM PACKET PO PRN (10:02)
[2021-11-26] MEDS ORDERED: Senna TAB 8.6 mg TAB PO PRN (10:02)
[2021-11-26] MEDS: Aspirin EC 81 mg TAB.EC (enteric coated) PO SCH (10:39)
[2021-11-26] MEDS: cefTRIAXone 1 gm/50 mL NS BAG 1 GM/50 ML BAG IVPB SCH (10:39)
[2021-11-26] MEDS: DOXYcycline 100 MG in NS 0.9% 250 ml 250 ML IVPB SCH (10:39)
[2021-11-26] MEDS: Pantoprazole VIAL 40 MG VIAL IV SCH (10:41)
[2021-11-26 11:33] VITALS: BP 135/60
[2021-11-28 14:00] LABS: Phospholipid Ab IgG < 9.4 GPL; Phospholipid Ab IgM, S < 9.4 MPL
[2021-11-28 14:54] LABS: Complement C3 101 mg/dL (75 - 175)
[2021-11-28 18:41] LABS: Mycoplasma pneumoniae IgG Ab Positive (Negative); Mycoplasma pneumoniae IgM Ab Negative (Negative)
== END 2021-11-26 16:25 | disposition home or self-care (01) | DRG 205 ==
LOC: ED 10:48 → SUATTDRO 16:09 → EDHOLD 16:09 → MEDTELE 18:11
PROVIDERS: ADMIT Pediatrics; ATTEND Internal Medicine